=== PATIENT | male | born 1955 | race Caucasian/White ===

== ENCOUNTER 2018-12-06 18:37 | Emergency (ER) | payer OTHER, BC ==
[~2018-12-06] VITALS: Ht 177.8 cm; Wt 99.8 kg
--- NOTE | 2018-12-06 19:54 | NUR ---
PT STATES THAT HE "NEEDS PAIN MEDS TO GET THROUGH THE NIGHT" PT IS GETTING AMBIEN AND LISINOPRIL REFILLED TOMORROW, BUT WAS UNABLE TO GET PRESCRIPTION REFILLED FOR MORPHINE SULFATE 15MG. MEDHX:CROHNS, SCIARATIC ARTHRITIS, PROSTATE CANCER 2005, NECK CANCER
--- NOTE | 2018-12-06 20:19 | NUR ---
NOTIFIED DR. DUQUE OF HIGH BLOOD PRESSURE READING 159/124 CONFIRMED BY REMEASUREMENT. PER HAO VILLANUEVA TO D/C PATIENT.
--- NOTE | 2018-12-06 20:20 | NUR ---
Patient discharged with v/s stable. Written and verbal after care instructions given and explained. Patient alert, oriented and verbalized understanding of instructions. Ambulatory with steady gait. All questions addressed prior to discharge. ID band removed. Patient advised to follow up with PMD. Rx of MORPHINE given. Patient educated on indication of medication including possible reaction and side effects. Opportunity to ask questions provided and answered.
[2018-12-06 20:23] VITALS: BP 159/124
== END 2018-12-06 20:20 | disposition home or self-care (01) ==
LOC: MED 18:37
DX: G89.29 Other chronic pain (principal); M25.561 Pain in right knee; M25.562 Pain in left knee; M13.80 Other specified arthritis, unspecified site; K50.90 Crohn's disease, unspecified, without complications; Z76.0 Encounter for issue of repeat prescription; Z88.1 Allergy status to other antibiotic agents; Z85.46 Personal history of malignant neoplasm of prostate; Z85.89 Personal history of malignant neoplasm of other organs and systems
CPT/HCPCS: 99283